=== PATIENT | female | born 1935 | race Caucasian/White ===

== ENCOUNTER 2022-03-14 18:40 | Emergency (ER) | payer OTHER, MEDICAID ==
[~2022-03-14] VITALS: Ht 152.4 cm; Wt 59.0 kg
[2022-03-14 18:50] VITALS: BP_SYST 146
--- NOTE | 2022-03-14 21:06 | NUR ---
Patient to ER bed 05 to gown for evaluation. Side rails up. Report given to HERNANDO SORTO
--- NOTE | 2022-03-14 21:10 | NUR ---
86 y/o f bib EMS from [facility] w c/o [facility] fall. pt does not report any pain currently.
--- NOTE | 2022-03-14 21:13 | NUR ---
PT TAKEN TO CT
--- NOTE | 2022-03-14 21:27 | NUR ---
DR. FARRIS AT BEDSIDE.
--- NOTE | 2022-03-14 21:30 | NUR ---
PT REFUSED TO ENTER CT
--- NOTE | 2022-03-14 21:35 | NUR ---
Pt given verbal education that refusal of treatment may lead to harm and/or , pt acknowledges. Pt stated, "no me toques, malditas."
--- NOTE | 2022-03-14 21:46 | NUR ---
SPOKE TO ADMIN AT [facility], THEY STATED THEY WILL CALL US BACK REGARDING TRANSPORT HOME FOR PT.
--- NOTE | 2022-03-14 21:51 | NUR ---
CALLED DAUGHTER MAURILIO FOR TRANSPORT, DAUGHTER COULD NOT PICK MOTHER UP.
--- NOTE | 2022-03-14 22:32 | NUR ---
Patient resting quietly. No acute distress noted. Vital signs within normal range.
--- NOTE | 2022-03-15 00:26 | NUR ---
Patient resting quietly. No acute distress noted. Vital signs within normal range. No complaints of pain at this time.
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
[2022-03-15 02:50] VITALS: BP_SYST 140
--- NOTE | 2022-03-15 02:50 | NUR ---
Patient dishcharged, taken by ems transport back to [facility]. VSS. Pt given written and verbal discharge instructions.
== END 2022-03-15 02:50 | disposition home or self-care (01) ==
LOC: SED 18:40
DX: Z04.3 Encounter for examination and observation following other accident (principal); I10 Essential (primary) hypertension; Z79.899 Other long term (current) drug therapy
CPT/HCPCS: 99283; 99285

== ENCOUNTER 2023-06-24 16:33 | Inpatient (IN) | payer OTHER, MEDICAID ==
[~2023-06-24] VITALS: Ht 172.7 cm; Wt 54.9 kg
[2023-06-24 16:35] VITALS: BP_SYST 125; PULSE 90; RESP 22; TEMP 96.5; O2SAT 95
[2023-06-24] MEDS ORDERED: HALOPERIDOL LACTATE 5 MG/ML VIAL ONE (17:40)
[2023-06-24] MEDS ORDERED: LORazepam 2 MG/ML VIAL IM ONE (17:45)
[2023-06-24] MEDS ORDERED: HALOPERIDOL LACTATE 5 MG/ML VIAL IM ONE (17:45)
[2023-06-24] MEDS ORDERED: OLANZapine IntraMuscular 10 MG VIAL (FOR I.M. INJECTION ONLY) IM ONE (17:45)
[2023-06-24] MEDS ORDERED: DIPHENHYDRAMINE INJ 50 MG/ML VIAL IM ONE (17:45)
[2023-06-24] MEDS ORDERED: HYDROcodone/ACETAMIN 5-325 MG TAB (NORCO/ VICODIN) PO ONE (20:15)
[2023-06-24 21:04] LABS: LYMPHOCYTES % (AUTO) 28.1 % (20.5-51.5); RED CELL DISTRIBUTION WIDTH 12.9 % (9.0-15.0)
[2023-06-24 21:10] LABS: BASOPHILS % (AUTO) 0.9 % (0.0-2.0); EOSINOPHILS % (AUTO) 0.5 % (0.0-4.0); HEMATOCRIT 36.2 % (36-48); HEMOGLOBIN 12.4 g/dL (12.0-16.0); LYMPHOCYTES # (AUTO) 2.5 K/uL (1.0-5.5); MEAN CORPUSCULAR HEMOGLOBIN 30 pg (27-31); MEAN CORPUSCULAR HGB CONC 34 % (32-36); MEAN CORPUSCULAR VOLUME 87 fL (79.0-98.0); MONOCYTES # (AUTO) 0.5 K/uL (0.0-1.0); NEUTROPHILS # (AUTO) 5.7 K/uL (1.8-7.7); NEUTROPHILS % (AUTO) 64.5 % (40.0-70.0); PLATELET COUNT (AUTO) 217 K/uL (130-430); RED BLOOD CELL COUNT(AUTO) 4.14 MIL/uL (4.2-6.2); WHITE BLOOD COUNT (AUTO) 8.9 K/uL (4.8-10.8)
[2023-06-24 21:16] LABS: ANION GAP 7 (5-15); CALCIUM 9.2 mg/dL (8.4-11.0); CARBON DIOXIDE 29 mmol/L (23-29); CHLORIDE 106 mmol/L (98-107); CREATININE 0.72 mg/dL (0.55-1.30); GLUCOSE 95 mg/dL (74-106); POTASSIUM 3.4 mmol/L (3.5-5.1); SODIUM SERUM 142 mmol/L (136-145); UREA NITROGEN, BLOOD 16 mg/dL (8-21)
[2023-06-24 21:17] LABS: PROTHROMBIN TIME 10.3 SECS (9.5-12.5)
[2023-06-24 21:22] LABS: ALANINE AMINOTRANSFERASE 18 U/L (12-78); ALBUMIN 3.7 g/dL (3.4-4.8); ASPARTATE AMINOTRANSFERASE 19 U/L (10-37); BILIRUBIN,DIRECT 0.1 mg/dL (0.0-0.3); SALICYLATE < 1 mg/dL (3-30); TOTAL BILIRUBIN 0.4 mg/dL (0.0-1.0); TOTAL PROTEIN, SERUM 7.5 g/dL (6.4-8.3)
[2023-06-24 21:23] LABS: ACETAMINOPHEN < 1 ug/mL (1-30); ALCOHOL, BLOOD < 3 mg/dL (<10)
[2023-06-24 21:25] LABS: BASOPHILS # (AUTO) 0.1 K/uL (0.0-0.2)
[2023-06-24 21:38] LABS: BILIRUBIN,URINE NEGATIVE (NEGATIVE); CLARITY/URINE CLEAR (CLEAR); COLOR,URINE YELLOW (YELLOW); GLUCOSE,URINE NEGATIVE (NEGATIVE); KETONES,URINE NEGATIVE (NEGATIVE); LEUKOCYTE ESTERASE ,URINE NEGATIVE (NEGATIVE); NITRITE, URINE NEGATIVE (NEGATIVE); PROTEIN URINE NEGATIVE (NEGATIVE); UROBILINOGEN,URINE 0.2 (0.2-1.0)
[2023-06-24 21:47] LABS: BLOOD, URINE TRACE (NEGATIVE)
[2023-06-24 21:48] LABS: BACTERIA,URINE None Seen /HPF (None Seen); MUCUS,URINE None Seen /LPF (None Seen); RBC,URINE 0-3 /HPF (0-3); WBC,URINE NONE SEEN /HPF (0-3)
[2023-06-24 21:49] LABS: BARBITURATE, URINE NEGATIVE (NEG <=200); BENZODIAZEPINE, URINE NEGATIVE (NEG <=150); CANNABINOID, URINE NEGATIVE (NEG <=50); COCAINE, URINE NEGATIVE (NEG <=150); METHAMPHETAMINES SCREEN,URINE NEGATIVE (NEG <=500); OPIATE, URINE NEGATIVE (NEG <=100); PHENCYCLIDINE SCREEN,URINE NEGATIVE (NEG <=25); UR TRICYCLIC ANTIDEPRESSANTS NEGATIVE (NEG <=300); URINE AMPHETAMINE NEGATIVE (NEG <=500); URINE METHADONE NEGATIVE (NEG <=200); URINE OXYCODONE SCREEN NEGATIVE (NEG <=100)
[2023-06-25] MEDS ORDERED: DIPHENHYDRAMINE INJ 50 MG/ML VIAL IVP ONE (03:00)
[2023-06-25] MEDS ORDERED: DIPHENHYDRAMINE INJ 50 MG/ML VIAL IM ONE ×2 (03:00→09:15)
[2023-06-25] MEDS ORDERED: HALOPERIDOL LACTATE 5 MG/ML VIAL IM ONE ×2 (03:30→07:00)
[2023-06-25] MEDS ORDERED: LORazepam 2 MG/ML VIAL IVP ONE ×2 (05:30→06:45)
[2023-06-25] MEDS ORDERED: OLANZapine 5 MG TABLET PO ONE (06:45)
[2023-06-25 09:51] LABS: BASOPHILS % (AUTO) 0.6 % (0.0-2.0); EOSINOPHILS % (AUTO) 0.7 % (0.0-4.0); HEMATOCRIT 35.1 % (36-48); LYMPHOCYTES # (AUTO) 1.3 K/uL (1.0-5.5); LYMPHOCYTES % (AUTO) 24.6 % (20.5-51.5); MEAN CORPUSCULAR HEMOGLOBIN 30 pg (27-31); MEAN CORPUSCULAR HGB CONC 34 % (32-36); MEAN CORPUSCULAR VOLUME 88 fL (79.0-98.0); MONOCYTES # (AUTO) 0.3 K/uL (0.0-1.0); MONOCYTES % (AUTO) 5.4 % (1.7-9.3); NEUTROPHILS # (AUTO) 3.7 K/uL (1.8-7.7); NEUTROPHILS % (AUTO) 68.7 % (40.0-70.0); PLATELET COUNT (AUTO) 276 K/uL (130-430); RED BLOOD CELL COUNT(AUTO) 4.01 MIL/uL (4.2-6.2); WHITE BLOOD COUNT (AUTO) 5.3 K/uL (4.8-10.8)
[2023-06-25 10:10] LABS: ANION GAP 10 (5-15); CALCIUM 8.8 mg/dL (8.4-11.0); CARBON DIOXIDE 25 mmol/L (23-29); CHLORIDE 105 mmol/L (98-107); GLUCOSE 138 mg/dL (74-106); POTASSIUM 3.4 mmol/L (3.5-5.1); SODIUM SERUM 140 mmol/L (136-145); UREA NITROGEN, BLOOD 14 mg/dL (8-21)
[2023-06-25 10:17] LABS: ALANINE AMINOTRANSFERASE 18 U/L (12-78); ALBUMIN 3.6 g/dL (3.4-4.8); ASPARTATE AMINOTRANSFERASE 32 U/L (10-37); TOTAL BILIRUBIN 0.5 mg/dL (0.0-1.0); TOTAL PROTEIN, SERUM 7.3 g/dL (6.4-8.3)
[2023-06-25] MEDS ORDERED: ASPI-1155 PO (11:53)
[2023-06-25] MEDS ORDERED: LEVO25TA7 PO (11:53)
[2023-06-25] MEDS ORDERED: GABA-534 PO (11:53)
[2023-06-25] MEDS ORDERED: LORA-258 PO (11:53)
[2023-06-25] MEDS ORDERED: ESCI-6 PO (11:53)
[2023-06-25] MEDS ORDERED: ATOR40TA68 PO (11:53)
[2023-06-25] MEDS: LORazepam 2 MG/ML VIAL IVP PRN ×2 (12:10→23:23)
[2023-06-25 16:06] VITALS: BP_SYST 117; PULSE 87; RESP 18; TEMP 98.5; O2SAT 98
[2023-06-25] MEDS ORDERED: BREX0.5T PO (18:20)
[2023-06-25] MEDS ORDERED: CALC-17 PO (18:20)
[2023-06-25] MEDS ORDERED: PANT40TA45 PO (18:20)
[2023-06-25 20:10] VITALS: BP_SYST 149; PULSE 72; RESP 18; TEMP 99.5; O2SAT 100
[2023-06-25] MEDS: LORazepam 1 MG TABLET PO SCH (21:00)
[2023-06-25] MEDS: ATORVASTATIN 20 MG TABLET PO SCH (21:00)
[2023-06-26 00:34] VITALS: BP_SYST 158; PULSE 71; RESP 20; TEMP 98.8; O2SAT 96
[2023-06-26] MEDS: LEVOTHYROXINE SODIUM 0.025 MG TABLET PO SCH (07:00)
[2023-06-26 08:00] VITALS: O2SAT 96
[2023-06-26] MEDS: LORazepam 2 MG/ML VIAL IVP PRN ×3 (08:22→17:49)
[2023-06-26 08:45] VITALS: BP_SYST 130; PULSE 111; RESP 16; TEMP 98.4; O2SAT 96
[2023-06-26] MEDS: ASPIRIN 81 MG TAB.CHEW PO SCH (09:00)
[2023-06-26] MEDS: LORazepam 1 MG TABLET PO SCH ×2 (09:00→20:27)
[2023-06-26] MEDS ORDERED: ESCITALOPRAM OXALATE 10 MG TABLET PO SCH (09:00)
[2023-06-26] MEDS: CITALOPRAM HYDROBROMIDE 20 MG TABLET PO SCH (09:00)
[2023-06-26 11:38] VITALS: BP_SYST 139; PULSE 117; RESP 21; TEMP 98.1; O2SAT 96
[2023-06-26] MEDS: D5/0.45 NS 1,000 ML IV SCH ×2 (13:21→23:31)
[2023-06-26 17:20] VITALS: BP_SYST 140; PULSE 120; RESP 21; TEMP 98.1; O2SAT 97
[2023-06-26] MEDS: ATORVASTATIN 20 MG TABLET PO SCH (20:27)
[2023-06-26 20:30] VITALS: BP_SYST 163; PULSE 118; RESP 20; TEMP 99.3; O2SAT 95
[2023-06-27] MEDS: LORazepam 2 MG/ML VIAL IVP PRN (00:03)
[2023-06-27 00:55] VITALS: BP_SYST 143; PULSE 115
[2023-06-27] MEDS: LEVOTHYROXINE SODIUM 0.025 MG TABLET PO SCH (07:00)
[2023-06-27 08:20] VITALS: BP_SYST 154; PULSE 91; RESP 20; TEMP 98.4; O2SAT 98
[2023-06-27] MEDS ORDERED: POTASSIUM CHLORIDE 20 MEQ TABLET.ER PO ONE (08:30)
[2023-06-27] MEDS: D5/0.45 NS 1,000 ML IV SCH ×2 (09:15→16:30)
[2023-06-27 09:55] VITALS: O2SAT 98
[2023-06-27] MEDS: LORazepam 1 MG TABLET PO SCH ×2 (10:12→22:15)
[2023-06-27] MEDS: CITALOPRAM HYDROBROMIDE 20 MG TABLET PO SCH (10:12)
[2023-06-27] MEDS: ASPIRIN 81 MG TAB.CHEW PO SCH (10:12)
[2023-06-27 11:45] VITALS: BP_SYST 155; PULSE 98; RESP 22; TEMP 98.5; O2SAT 100
[2023-06-27 17:25] VITALS: BP_SYST 149; PULSE 69; RESP 17; TEMP 98; O2SAT 100
[2023-06-27 21:30] VITALS: O2SAT 98
[2023-06-27] MEDS: ATORVASTATIN 20 MG TABLET PO SCH (22:14)
[2023-06-28] MEDS: LORazepam 2 MG/ML VIAL IVP PRN ×3 (00:48→16:57)
[2023-06-28 01:51] VITALS: BP_SYST 135; PULSE 63; RESP 17; TEMP 97.8; O2SAT 99
[2023-06-28 06:29] LABS: BASOPHILS % (AUTO) 0.3 % (0.0-2.0); EOSINOPHILS # (AUTO) 0.1 K/uL (0.0-0.4); EOSINOPHILS % (AUTO) 0.9 % (0.0-4.0); HEMATOCRIT 39.5 % (36-48); HEMOGLOBIN 13.8 g/dL (12.0-16.0); LYMPHOCYTES # (AUTO) 1.9 K/uL (1.0-5.5); LYMPHOCYTES % (AUTO) 29.2 % (20.5-51.5); MEAN CORPUSCULAR HEMOGLOBIN 30 pg (27-31); MEAN CORPUSCULAR HGB CONC 35 % (32-36); MEAN CORPUSCULAR VOLUME 87 fL (79.0-98.0); MONOCYTES # (AUTO) 0.5 K/uL (0.0-1.0); MONOCYTES % (AUTO) 7.9 % (1.7-9.3); NEUTROPHILS % (AUTO) 61.7 % (40.0-70.0); PLATELET COUNT (AUTO) 297 K/uL (130-430); RED BLOOD CELL COUNT(AUTO) 4.53 MIL/uL (4.2-6.2); RED CELL DISTRIBUTION WIDTH 13.1 % (9.0-15.0); WHITE BLOOD COUNT (AUTO) 6.5 K/uL (4.8-10.8)
[2023-06-28 06:56] LABS: ANION GAP 8 (5-15); CALCIUM 9.3 mg/dL (8.4-11.0); CARBON DIOXIDE 28 mmol/L (23-29); CHLORIDE 103 mmol/L (98-107); CREATININE 0.71 mg/dL (0.55-1.30); GLUCOSE 109 mg/dL (74-106); POTASSIUM 3.5 mmol/L (3.5-5.1); SODIUM SERUM 139 mmol/L (136-145); UREA NITROGEN, BLOOD 9 mg/dL (8-21)
[2023-06-28] MEDS: D5/0.45 NS 1,000 ML IV SCH ×2 (07:30→16:57)
[2023-06-28 08:00] VITALS: BP_SYST 153; PULSE 76; RESP 17; TEMP 97.1; O2SAT 100
[2023-06-28] MEDS: ASPIRIN 81 MG TAB.CHEW PO SCH ×2 (09:00→09:09)
[2023-06-28] MEDS: LORazepam 1 MG TABLET PO SCH ×3 (09:00→23:34)
[2023-06-28] MEDS: CITALOPRAM HYDROBROMIDE 20 MG TABLET PO SCH ×2 (09:00→09:09)
[2023-06-28 12:16] VITALS: BP_SYST 145; PULSE 72; RESP 16; TEMP 97.4; O2SAT 97
[2023-06-28 16:23] VITALS: BP_SYST 149; PULSE 77; RESP 16; TEMP 97.2; O2SAT 99
[2023-06-28] MEDS: ATORVASTATIN 20 MG TABLET PO SCH (23:34)
[2023-06-29] MEDS: D5/0.45 NS 1,000 ML IV SCH ×2 (01:15→13:16)
[2023-06-29 01:34] VITALS: BP_SYST 140; PULSE 68; RESP 17; TEMP 98.4; O2SAT 99
[2023-06-29] MEDS: LEVOTHYROXINE SODIUM 0.025 MG TABLET PO SCH (07:00)
[2023-06-29 08:36] VITALS: BP_SYST 151; PULSE 96; RESP 20; TEMP 97.1; O2SAT 97
[2023-06-29] MEDS: LORazepam 2 MG/ML VIAL IVP PRN ×2 (08:53→16:24)
[2023-06-29] MEDS: LORazepam 1 MG TABLET PO SCH (09:00)
[2023-06-29] MEDS: CITALOPRAM HYDROBROMIDE 20 MG TABLET PO SCH (09:00)
[2023-06-29] MEDS: ASPIRIN 81 MG TAB.CHEW PO SCH (09:00)
[2023-06-29 10:36] VITALS: O2SAT 97
[2023-06-29 11:13] VITALS: BP_SYST 134; PULSE 61; RESP 16; TEMP 96.6; O2SAT 93
[2023-06-29 15:30] VITALS: BP_SYST 154; PULSE 72; RESP 16; TEMP 96.8; O2SAT 96
[2023-06-30] VITALS (7 sets, daily range): BP systolic 120–139; PULSE 64–86; RESP 16–18; TEMP 97.4–98.6; O2SAT 93–98
[2023-06-30] MEDS: LORazepam 1 MG TABLET PO SCH ×4 (01:23→21:00)
[2023-06-30] MEDS: ATORVASTATIN 20 MG TABLET PO SCH ×2 (01:24→20:22)
[2023-06-30] MEDS: D5/0.45 NS 1,000 ML IV SCH ×3 (01:26→17:19)
[2023-06-30 06:15] LABS: BASOPHILS % (AUTO) 0.6 % (0.0-2.0); EOSINOPHILS # (AUTO) 0.2 K/uL (0.0-0.4); EOSINOPHILS % (AUTO) 4.3 % (0.0-4.0); HEMATOCRIT 37.2 % (36-48); HEMOGLOBIN 12.8 g/dL (12.0-16.0); LYMPHOCYTES # (AUTO) 1.8 K/uL (1.0-5.5); LYMPHOCYTES % (AUTO) 37.7 % (20.5-51.5); MEAN CORPUSCULAR HEMOGLOBIN 30 pg (27-31); MEAN CORPUSCULAR HGB CONC 34 % (32-36); MEAN CORPUSCULAR VOLUME 86 fL (79.0-98.0); MONOCYTES # (AUTO) 0.4 K/uL (0.0-1.0); MONOCYTES % (AUTO) 8.5 % (1.7-9.3); NEUTROPHILS # (AUTO) 2.3 K/uL (1.8-7.7); NEUTROPHILS % (AUTO) 48.9 % (40.0-70.0); PLATELET COUNT (AUTO) 297 K/uL (130-430); RED BLOOD CELL COUNT(AUTO) 4.31 MIL/uL (4.2-6.2); RED CELL DISTRIBUTION WIDTH 12.6 % (9.0-15.0); WHITE BLOOD COUNT (AUTO) 4.7 K/uL (4.8-10.8)
[2023-06-30 06:26] LABS: ANION GAP 9 (5-15); CARBON DIOXIDE 25 mmol/L (23-29); CHLORIDE 105 mmol/L (98-107); CREATININE 0.65 mg/dL (0.55-1.30); GLUCOSE 121 mg/dL (74-106); POTASSIUM 3.2 mmol/L (3.5-5.1); SODIUM SERUM 139 mmol/L (136-145); UREA NITROGEN, BLOOD 9 mg/dL (8-21)
[2023-06-30] MEDS: LEVOTHYROXINE SODIUM 0.025 MG TABLET PO SCH (07:00)
[2023-06-30] MEDS: ASPIRIN 81 MG TAB.CHEW PO SCH (09:07)
[2023-06-30] MEDS: CITALOPRAM HYDROBROMIDE 20 MG TABLET PO SCH (09:08)
[2023-06-30] MEDS: LORazepam 2 MG/ML VIAL IVP PRN (20:35)
[2023-06-30] MEDS ORDERED: ALPRAZolam 0.25 MG TABLET PO ONE (23:15)
[2023-07-01] VITALS: BP_SYST 131; PULSE 85; RESP 18; TEMP 97.4; O2SAT 94
[2023-07-01] MEDS: D5/0.45 NS 1,000 ML IV SCH ×2 (02:15→13:15)
[2023-07-01 06:46] LABS: BASOPHILS % (AUTO) 0.8 % (0.0-2.0); EOSINOPHILS # (AUTO) 0.1 K/uL (0.0-0.4); EOSINOPHILS % (AUTO) 2.3 % (0.0-4.0); HEMATOCRIT 34.8 % (36-48); HEMOGLOBIN 12.2 g/dL (12.0-16.0); LYMPHOCYTES # (AUTO) 1.6 K/uL (1.0-5.5); LYMPHOCYTES % (AUTO) 29.1 % (20.5-51.5); MEAN CORPUSCULAR HEMOGLOBIN 30 pg (27-31); MEAN CORPUSCULAR HGB CONC 35 % (32-36); MEAN CORPUSCULAR VOLUME 86 fL (79.0-98.0); MONOCYTES # (AUTO) 0.4 K/uL (0.0-1.0); MONOCYTES % (AUTO) 6.7 % (1.7-9.3); NEUTROPHILS # (AUTO) 3.3 K/uL (1.8-7.7); NEUTROPHILS % (AUTO) 61.1 % (40.0-70.0); PLATELET COUNT (AUTO) 283 K/uL (130-430); RED BLOOD CELL COUNT(AUTO) 4.07 MIL/uL (4.2-6.2); RED CELL DISTRIBUTION WIDTH 12.4 % (9.0-15.0); WHITE BLOOD COUNT (AUTO) 5.5 K/uL (4.8-10.8)
[2023-07-01 06:51] LABS: ANION GAP 8 (5-15); CALCIUM 8.6 mg/dL (8.4-11.0); CARBON DIOXIDE 27 mmol/L (23-29); CHLORIDE 105 mmol/L (98-107); CREATININE 0.55 mg/dL (0.55-1.30); GLUCOSE 118 mg/dL (74-106); SODIUM SERUM 140 mmol/L (136-145); UREA NITROGEN, BLOOD 7 mg/dL (8-21)
[2023-07-01] MEDS: LEVOTHYROXINE SODIUM 0.025 MG TABLET PO SCH (07:00)
[2023-07-01 07:12] LABS: POTASSIUM 2.7 mmol/L (3.5-5.1)
[2023-07-01 08:00] VITALS: O2SAT 97
[2023-07-01] MEDS: LORazepam 1 MG TABLET PO SCH (09:00)
[2023-07-01] MEDS: ASPIRIN 81 MG TAB.CHEW PO SCH (09:00)
[2023-07-01] MEDS: CITALOPRAM HYDROBROMIDE 20 MG TABLET PO SCH (09:00)
[2023-07-01] MEDS: LORazepam 2 MG/ML VIAL IVP PRN (10:04)
[2023-07-01 11:15] VITALS: BP_SYST 121; PULSE 79; RESP 16; TEMP 97; O2SAT 100
[2023-07-01] MEDS ORDERED: POTASSIUM CHLORIDE 60 MEQ, LIDOCAINE JECT 2% PF 100 MG 75 MG in NS 500 ML IV ONE (13:00)
[2023-07-01 15:05] VITALS: BP_SYST 118; PULSE 71; RESP 16; TEMP 97.7; O2SAT 95
== END 2023-07-01 17:55 | DRG 641 ==
LOC: SED 16:33 → STU 06-25 09:19
PROVIDERS: ADMIT Internal Medicine; ATTEND Internal Medicine
PROC: 4A00X4Z Measurement of Central Nervous Electrical Activity, External Approach (ICD-10-PCS; principal; 2023-06-28)
DX: E87.6 Hypokalemia (principal); E44.1 Mild protein-calorie malnutrition; Z68.1 Body mass index [BMI] 19.9 or less, adult; F03.90 Unspecified dementia, unspecified severity, without behavioral disturbance, psychotic disturbance, mood disturbance, and anxiety; I10 Essential (primary) hypertension; E78.5 Hyperlipidemia, unspecified; E03.9 Hypothyroidism, unspecified; F32.A Depression, unspecified; F41.9 Anxiety disorder, unspecified; Z88.1 Allergy status to other antibiotic agents; Z88.8 Allergy status to other drugs, medicaments and biological substances
CPT/HCPCS: 36415; 70450-TC; 71045; 72125-TC; 76376; 80048; 80053; 80076; 80307; 81000; 81001; 81015; 82962; 83880; 84484; 85025; 85610-TC; 85730-TC; 93005; 95816; 96372; 97110-GP; 97112-GP; 97530-GP; 99291; G0378; G0480; G0481; G0482; J1200; J1630; J2060; J3480; J3490; J7040

== ENCOUNTER 2023-07-17 12:42 | Inpatient (IN) | payer OTHER, MEDICAID ==
[~2023-07-17] VITALS: Ht 162.6 cm; Wt 54.4 kg
[~2023-07-17 12:42] MED LIST: ASPI-1155 PO; ATOR40TA68 PO; BREX0.5T PO; CALC-17 PO; ESCI-6 PO; GABA-534 PO; LEVO25TA7 PO; LORA-258 PO; PANT40TA45 PO
[2023-07-17] MEDS ORDERED: LORazepam 2 MG/ML VIAL IM ONE (12:45)
[2023-07-17] MEDS ORDERED: HALOPERIDOL LACTATE 5 MG/ML VIAL IM ONE (12:45)
[2023-07-17] MEDS ORDERED: DIPHENHYDRAMINE INJ 50 MG/ML VIAL IM ONE (12:45)
[2023-07-17 12:50] VITALS: BP_SYST 138; PULSE 61; RESP 18; TEMP 97; O2SAT 96
[2023-07-17 13:24] LABS: BASOPHILS % (AUTO) 0.6 % (0.0-2.0); EOSINOPHILS # (AUTO) 0.2 K/uL (0.0-0.4); HEMATOCRIT 36.4 % (36-48); HEMOGLOBIN 12.8 g/dL (12.0-16.0); LYMPHOCYTES # (AUTO) 2.2 K/uL (1.0-5.5); LYMPHOCYTES % (AUTO) 28.5 % (20.5-51.5); MEAN CORPUSCULAR HEMOGLOBIN 30 pg (27-31); MEAN CORPUSCULAR HGB CONC 35 % (32-36); MEAN CORPUSCULAR VOLUME 86 fL (79.0-98.0); MONOCYTES # (AUTO) 0.4 K/uL (0.0-1.0); NEUTROPHILS # (AUTO) 4.9 K/uL (1.8-7.7); NEUTROPHILS % (AUTO) 63.9 % (40.0-70.0); PLATELET COUNT (AUTO) 397 K/uL (130-430); RED BLOOD CELL COUNT(AUTO) 4.24 MIL/uL (4.2-6.2); WHITE BLOOD COUNT (AUTO) 7.6 K/uL (4.8-10.8)
[2023-07-17 13:35] LABS: ANION GAP 12 (5-15); CALCIUM 9.3 mg/dL (8.4-11.0); CARBON DIOXIDE 24 mmol/L (23-29); CHLORIDE 107 mmol/L (98-107); CREATININE 0.95 mg/dL (0.55-1.30); GLUCOSE 131 mg/dL (74-106); POTASSIUM 3.8 mmol/L (3.5-5.1); SODIUM SERUM 143 mmol/L (136-145); UREA NITROGEN, BLOOD 14 mg/dL (8-21)
[2023-07-17 13:38] LABS: ALANINE AMINOTRANSFERASE 22 U/L (12-78); ALBUMIN 3.5 g/dL (3.4-4.8); ASPARTATE AMINOTRANSFERASE 20 U/L (10-37); BILIRUBIN,DIRECT 0.1 mg/dL (0.0-0.3); CREATINE KINASE, TOTAL 154 U/L (26-192); SALICYLATE 1 mg/dL (3-30); TOTAL BILIRUBIN 0.4 mg/dL (0.0-1.0); TOTAL PROTEIN, SERUM 7.4 g/dL (6.4-8.3)
[2023-07-17 13:39] LABS: ACETAMINOPHEN < 1 ug/mL (1-30); ALCOHOL, BLOOD < 3 mg/dL (<10)
[2023-07-17] MEDS ORDERED: PIPERACILLIN/TAZO 3.375 GM in NS 50 ML IV ONE (16:30)
[2023-07-17 17:09] LABS: BILIRUBIN,URINE NEGATIVE (NEGATIVE); BLOOD, URINE 1+ (NEGATIVE); CLARITY/URINE SL CLOUDY (CLEAR); COLOR,URINE YELLOW (YELLOW); GLUCOSE,URINE NEGATIVE (NEGATIVE); KETONES,URINE TRACE (NEGATIVE); LEUKOCYTE ESTERASE ,URINE 3+ (NEGATIVE); NITRITE, URINE POSITIVE (NEGATIVE); PH,URINE 6.5 (5.0-8.0); PROTEIN URINE NEGATIVE (NEGATIVE); UROBILINOGEN,URINE 0.2 (0.2-1.0)
[2023-07-17] MEDS ORDERED: PIPERACILLIN/TAZOBACTAM 3.375 GM/VIAL (ZOSYN) IV ONE (17:12)
[2023-07-17 17:20] LABS: BACTERIA,URINE MANY /HPF (None Seen); MUCUS,URINE None Seen /LPF (None Seen); RBC,URINE 0-3 /HPF (0-3); WBC,URINE 50-80 /HPF (0-3)
[2023-07-17] MEDS ORDERED: ONDANSETRON HCL 4 MG/2 ML VIAL IVP PRN (19:45)
[2023-07-17] MEDS ORDERED: MUPIROCIN 2% TOPICAL OINTMENT 22 GM NS PRN (19:45)
[2023-07-17] MEDS ORDERED: ZOLPIDEM TARTRATE 5 MG TABLET PO PRN (19:45)
[2023-07-17] MEDS ORDERED: DOCUSATE SODIUM 100 MG CAPSULE PO PRN (19:45)
[2023-07-17] MEDS ORDERED: MAGNESIUM SULFATE 50 ML IV PRN (19:45)
[2023-07-17] MEDS ORDERED: POTASSIUM CHLORIDE 20 MEQ TABLET.ER PO PRN (19:45)
[2023-07-17] MEDS ORDERED: NACL 0.9% 1,000 ML IV SCH (20:00)
[2023-07-17] MEDS ORDERED: ACETAMINOPHEN 500 MG TABLET PO PRN ×2 (20:00)
[2023-07-17] MEDS ORDERED: NON-FORMULARY MEDICATION (Brexpiprazole (Rexulti) 1 TAB) PO SCH (21:00)
[2023-07-17] MEDS: GABAPENTIN 300 MG CAPSULE PO SCH (21:55)
[2023-07-17] MEDS: ATORVASTATIN 20 MG TABLET PO SCH (21:55)
[2023-07-17] MEDS: HEPARIN SODIUM,PORCINE 5,000 UNITS/ML VIAL SUBCUT SCH (22:49)
[2023-07-18 04:39] LABS: BASOPHILS % (AUTO) 0.7 % (0.0-2.0); EOSINOPHILS # (AUTO) 0.2 K/uL (0.0-0.4); EOSINOPHILS % (AUTO) 2.4 % (0.0-4.0); HEMATOCRIT 38.4 % (36-48); HEMOGLOBIN 13.3 g/dL (12.0-16.0); LYMPHOCYTES # (AUTO) 2.2 K/uL (1.0-5.5); LYMPHOCYTES % (AUTO) 30.4 % (20.5-51.5); MEAN CORPUSCULAR HEMOGLOBIN 30 pg (27-31); MEAN CORPUSCULAR HGB CONC 35 % (32-36); MEAN CORPUSCULAR VOLUME 87 fL (79.0-98.0); MONOCYTES # (AUTO) 0.4 K/uL (0.0-1.0); MONOCYTES % (AUTO) 5.7 % (1.7-9.3); NEUTROPHILS # (AUTO) 4.5 K/uL (1.8-7.7); NEUTROPHILS % (AUTO) 60.8 % (40.0-70.0); PLATELET COUNT (AUTO) 323 K/uL (130-430); RED BLOOD CELL COUNT(AUTO) 4.39 MIL/uL (4.2-6.2); WHITE BLOOD COUNT (AUTO) 7.4 K/uL (4.8-10.8)
[2023-07-18 05:00] LABS: ANION GAP 8 (5-15); CARBON DIOXIDE 30 mmol/L (23-29); CHLORIDE 110 mmol/L (98-107); CREATININE 0.81 mg/dL (0.55-1.30); GLUCOSE 84 mg/dL (74-106); POTASSIUM 3.8 mmol/L (3.5-5.1); SODIUM SERUM 148 mmol/L (136-145); UREA NITROGEN, BLOOD 12 mg/dL (8-21)
[2023-07-18] MEDS ORDERED: cefTRIAXone 1 GM VIAL ONE (07:21)
[2023-07-18] MEDS: cefTRIAXone 1 GM in D5W 50 ML IV SCH (07:23)
[2023-07-18] MEDS: REXULTI 0.5 MG PO SCH (09:00)
[2023-07-18] MEDS ORDERED: ESCITALOPRAM OXALATE 10 MG TABLET PO SCH (09:00)
[2023-07-18] MEDS: ASPIRIN 81 MG TAB.CHEW PO SCH (09:05)
[2023-07-18] MEDS: CITALOPRAM HYDROBROMIDE 20 MG TABLET PO SCH (09:05)
[2023-07-18] MEDS: GABAPENTIN 300 MG CAPSULE PO SCH ×2 (09:06→21:42)
[2023-07-18] MEDS: LEVOTHYROXINE SODIUM 0.025 MG TABLET PO SCH (09:06)
[2023-07-18] MEDS: HEPARIN SODIUM,PORCINE 5,000 UNITS/ML VIAL SUBCUT SCH ×2 (09:30→21:46)
[2023-07-18] MEDS: LORazepam 2 MG/ML VIAL IVP PRN ×2 (15:06→21:42)
[2023-07-18 15:15] VITALS: BP_SYST 111; PULSE 104; RESP 16; TEMP 97.1; O2SAT 93
[2023-07-18 15:57] VITALS: BP_SYST 111; PULSE 104; RESP 16; TEMP 97.1; O2SAT 93
[2023-07-18 20:00] VITALS: BP_SYST 125; PULSE 98; RESP 18; TEMP 98; O2SAT 98
[2023-07-18] MEDS: ATORVASTATIN 20 MG TABLET PO SCH (21:42)
[2023-07-19 00:33] VITALS: BP_SYST 115; PULSE 115; RESP 17; TEMP 97.6; O2SAT 100
[2023-07-19 05:49] LABS: BASOPHILS # (AUTO) 0.1 K/uL (0.0-0.2); BASOPHILS % (AUTO) 0.9 % (0.0-2.0); EOSINOPHILS # (AUTO) 0.1 K/uL (0.0-0.4); EOSINOPHILS % (AUTO) 1.8 % (0.0-4.0); HEMATOCRIT 33.2 % (36-48); HEMOGLOBIN 11.5 g/dL (12.0-16.0); LYMPHOCYTES # (AUTO) 1.8 K/uL (1.0-5.5); MEAN CORPUSCULAR HEMOGLOBIN 30 pg (27-31); MEAN CORPUSCULAR HGB CONC 35 % (32-36); MEAN CORPUSCULAR VOLUME 86 fL (79.0-98.0); MONOCYTES # (AUTO) 0.3 K/uL (0.0-1.0); MONOCYTES % (AUTO) 5.4 % (1.7-9.3); NEUTROPHILS % (AUTO) 63.9 % (40.0-70.0); PLATELET COUNT (AUTO) 290 K/uL (130-430); RED BLOOD CELL COUNT(AUTO) 3.87 MIL/uL (4.2-6.2); RED CELL DISTRIBUTION WIDTH 12.5 % (9.0-15.0); WHITE BLOOD COUNT (AUTO) 6.3 K/uL (4.8-10.8)
[2023-07-19 06:30] LABS: ANION GAP 10 (5-15); CALCIUM 8.5 mg/dL (8.4-11.0); CARBON DIOXIDE 26 mmol/L (23-29); CHLORIDE 108 mmol/L (98-107); CREATININE 0.58 mg/dL (0.55-1.30); GLUCOSE 86 mg/dL (74-106); POTASSIUM 3.4 mmol/L (3.5-5.1); SODIUM SERUM 144 mmol/L (136-145); THYROID STIMULATING HORMONE 0.89 uIu/mL (0.34-4.82); UREA NITROGEN, BLOOD 8 mg/dL (8-21)
[2023-07-19] MEDS: LEVOTHYROXINE SODIUM 0.025 MG TABLET PO SCH (06:40)
[2023-07-19] MEDS ORDERED: POTASSIUM CHLORIDE 20 MEQ TABLET.ER PO ONE (07:30)
[2023-07-19 08:00] VITALS: BP_SYST 131; PULSE 78; RESP 16; TEMP 98.1; O2SAT 97
[2023-07-19] MEDS: REXULTI 0.5 MG PO SCH ×2 (09:00→21:00)
[2023-07-19 10:00] VITALS: O2SAT 97
[2023-07-19] MEDS: LORazepam 2 MG/ML VIAL IVP PRN (10:19)
[2023-07-19] MEDS: ASPIRIN 81 MG TAB.CHEW PO SCH (10:32)
[2023-07-19] MEDS: GABAPENTIN 300 MG CAPSULE PO SCH ×2 (10:32→21:19)
[2023-07-19] MEDS: CITALOPRAM HYDROBROMIDE 20 MG TABLET PO SCH (10:33)
[2023-07-19] MEDS: HEPARIN SODIUM,PORCINE 5,000 UNITS/ML VIAL SUBCUT SCH ×2 (10:34→21:19)
[2023-07-19] MEDS: cefTRIAXone 1 GM in D5W 50 ML IV SCH (10:35)
[2023-07-19 11:08] VITALS: BP_SYST 154; PULSE 77; RESP 16; TEMP 97.2; O2SAT 93
[2023-07-19 15:11] VITALS: BP_SYST 110; PULSE 93; RESP 14; TEMP 97.6; O2SAT 99
[2023-07-19 20:00] VITALS: BP_SYST 129; PULSE 101; RESP 18; TEMP 97.5; O2SAT 97
[2023-07-19] MEDS: CIPROFLOXACIN LACT 400 MG/D5W 200 ML IV SCH (21:17)
[2023-07-19] MEDS: QUEtiapine FUMARATE 25 MG TABLET PO SCH (21:18)
[2023-07-19] MEDS: ATORVASTATIN 20 MG TABLET PO SCH (21:18)
[2023-07-20 00:37] VITALS: BP_SYST 181; PULSE 71; RESP 16; TEMP 97.8; O2SAT 100
[2023-07-20 01:28] VITALS: BP_SYST 150
[2023-07-20] MEDS: LEVOTHYROXINE SODIUM 0.025 MG TABLET PO SCH (06:35)
[2023-07-20 07:06] LABS: ANION GAP 9 (5-15); CALCIUM 8.2 mg/dL (8.4-11.0); CARBON DIOXIDE 26 mmol/L (23-29); CHLORIDE 108 mmol/L (98-107); CREATININE 0.58 mg/dL (0.55-1.30); GLUCOSE 80 mg/dL (74-106); POTASSIUM 3.7 mmol/L (3.5-5.1); SODIUM SERUM 143 mmol/L (136-145); UREA NITROGEN, BLOOD 10 mg/dL (8-21)
[2023-07-20 07:23] LABS: BASOPHILS % (AUTO) 0.7 % (0.0-2.0); EOSINOPHILS # (AUTO) 0.2 K/uL (0.0-0.4); EOSINOPHILS % (AUTO) 2.9 % (0.0-4.0); HEMATOCRIT 34.9 % (36-48); LYMPHOCYTES # (AUTO) 1.3 K/uL (1.0-5.5); LYMPHOCYTES % (AUTO) 25.8 % (20.5-51.5); MEAN CORPUSCULAR HEMOGLOBIN 30 pg (27-31); MEAN CORPUSCULAR HGB CONC 34 % (32-36); MEAN CORPUSCULAR VOLUME 87 fL (79.0-98.0); MONOCYTES # (AUTO) 0.3 K/uL (0.0-1.0); MONOCYTES % (AUTO) 6.6 % (1.7-9.3); NEUTROPHILS # (AUTO) 3.3 K/uL (1.8-7.7); PLATELET COUNT (AUTO) 225 K/uL (130-430); RED BLOOD CELL COUNT(AUTO) 4.02 MIL/uL (4.2-6.2); RED CELL DISTRIBUTION WIDTH 12.7 % (9.0-15.0); WHITE BLOOD COUNT (AUTO) 5.2 K/uL (4.8-10.8)
[2023-07-20 08:00] VITALS: BP_SYST 151; PULSE 82; RESP 16; TEMP 96.2; O2SAT 98
[2023-07-20] MEDS: REXULTI 0.5 MG PO SCH ×2 (09:00→21:00)
[2023-07-20] MEDS: GABAPENTIN 300 MG CAPSULE PO SCH ×2 (09:11→20:32)
[2023-07-20] MEDS: QUEtiapine FUMARATE 25 MG TABLET PO SCH ×2 (09:11→20:31)
[2023-07-20] MEDS: ASPIRIN 81 MG TAB.CHEW PO SCH (09:11)
[2023-07-20] MEDS: CITALOPRAM HYDROBROMIDE 20 MG TABLET PO SCH (09:11)
[2023-07-20] MEDS: CIPROFLOXACIN LACT 400 MG/D5W 200 ML IV SCH ×2 (09:11→20:45)
[2023-07-20] MEDS: HEPARIN SODIUM,PORCINE 5,000 UNITS/ML VIAL SUBCUT SCH ×2 (09:13→20:33)
[2023-07-20 13:24] VITALS: BP_SYST 145; PULSE 80; RESP 17; TEMP 96.8; O2SAT 96
[2023-07-20 16:30] VITALS: BP_SYST 148; PULSE 81; RESP 17; TEMP 96.4; O2SAT 97
[2023-07-20 20:00] VITALS: BP_SYST 120; PULSE 94; RESP 18; TEMP 97.8; O2SAT 99
[2023-07-20] MEDS: ATORVASTATIN 20 MG TABLET PO SCH (20:31)
[2023-07-20] MEDS: ACETAMINOPHEN 500 MG TABLET PO PRN (20:32)
[2023-07-21] VITALS: BP_SYST 117; PULSE 59; RESP 18; TEMP 97.9; O2SAT 99
[2023-07-21] MEDS: LORazepam 2 MG/ML VIAL IVP PRN (04:59)
[2023-07-21] MEDS: LEVOTHYROXINE SODIUM 0.025 MG TABLET PO SCH (06:10)
[2023-07-21] MEDS: ACETAMINOPHEN 500 MG TABLET PO PRN (06:11)
[2023-07-21 06:43] LABS: BASOPHILS # (AUTO) 0.1 K/uL (0.0-0.2); BASOPHILS % (AUTO) 0.9 % (0.0-2.0); EOSINOPHILS # (AUTO) 0.2 K/uL (0.0-0.4); EOSINOPHILS % (AUTO) 3.9 % (0.0-4.0); HEMATOCRIT 37.5 % (36-48); HEMOGLOBIN 12.8 g/dL (12.0-16.0); LYMPHOCYTES # (AUTO) 2.6 K/uL (1.0-5.5); LYMPHOCYTES % (AUTO) 42.2 % (20.5-51.5); MEAN CORPUSCULAR HEMOGLOBIN 30 pg (27-31); MEAN CORPUSCULAR HGB CONC 34 % (32-36); MEAN CORPUSCULAR VOLUME 87 fL (79.0-98.0); MONOCYTES # (AUTO) 0.3 K/uL (0.0-1.0); MONOCYTES % (AUTO) 5.4 % (1.7-9.3); NEUTROPHILS # (AUTO) 2.9 K/uL (1.8-7.7); NEUTROPHILS % (AUTO) 47.6 % (40.0-70.0); PLATELET COUNT (AUTO) 254 K/uL (130-430); WHITE BLOOD COUNT (AUTO) 6.1 K/uL (4.8-10.8)
[2023-07-21 07:12] LABS: ANION GAP 9 (5-15); CALCIUM 9.3 mg/dL (8.4-11.0); CARBON DIOXIDE 28 mmol/L (23-29); CHLORIDE 107 mmol/L (98-107); CREATININE 0.77 mg/dL (0.55-1.30); GLUCOSE 82 mg/dL (74-106); POTASSIUM 4.7 mmol/L (3.5-5.1); SODIUM SERUM 144 mmol/L (136-145); UREA NITROGEN, BLOOD 10 mg/dL (8-21)
[2023-07-21 08:00] VITALS: BP_SYST 129; PULSE 78; RESP 18; TEMP 96.1; O2SAT 97
[2023-07-21] MEDS: REXULTI 0.5 MG PO SCH ×2 (09:00→21:00)
[2023-07-21] MEDS: CITALOPRAM HYDROBROMIDE 20 MG TABLET PO SCH (10:22)
[2023-07-21] MEDS: ASPIRIN 81 MG TAB.CHEW PO SCH (10:22)
[2023-07-21] MEDS: GABAPENTIN 300 MG CAPSULE PO SCH ×2 (10:22→22:12)
[2023-07-21] MEDS: QUEtiapine FUMARATE 25 MG TABLET PO SCH ×2 (10:22→22:13)
[2023-07-21] MEDS: HEPARIN SODIUM,PORCINE 5,000 UNITS/ML VIAL SUBCUT SCH ×2 (10:24→22:20)
[2023-07-21 10:54] VITALS: BP_SYST 118; PULSE 62; RESP 18; TEMP 97.9; O2SAT 98
[2023-07-21] MEDS: CIPROFLOXACIN LACT 400 MG/D5W 200 ML IV SCH ×2 (10:59→21:00)
[2023-07-21 15:49] VITALS: BP_SYST 110; PULSE 63; RESP 18; TEMP 97.9; O2SAT 98
[2023-07-21 19:00] VITALS: BP_SYST 112; PULSE 65; RESP 16; TEMP 97.2; O2SAT 96
[2023-07-21 20:00] VITALS: BP_SYST 112; PULSE 65; RESP 16; TEMP 97.2; O2SAT 96
[2023-07-21] MEDS: ATORVASTATIN 20 MG TABLET PO SCH (22:12)
[2023-07-22 00:46] VITALS: BP_SYST 143; PULSE 101; RESP 19; TEMP 97.8; O2SAT 97
[2023-07-22] MEDS: LEVOTHYROXINE SODIUM 0.025 MG TABLET PO SCH (07:00)
[2023-07-22 08:00] VITALS: BP_SYST 130; PULSE 109; RESP 18; TEMP 98.2; O2SAT 96
[2023-07-22 08:13] LABS: ANION GAP 10 (5-15); CALCIUM 8.9 mg/dL (8.4-11.0); CARBON DIOXIDE 26 mmol/L (23-29); CHLORIDE 106 mmol/L (98-107); GLUCOSE 84 mg/dL (74-106); POTASSIUM 4.2 mmol/L (3.5-5.1); SODIUM SERUM 142 mmol/L (136-145); UREA NITROGEN, BLOOD 13 mg/dL (8-21)
[2023-07-22 08:20] LABS: BASOPHILS % (AUTO) 0.7 % (0.0-2.0); EOSINOPHILS # (AUTO) 0.1 K/uL (0.0-0.4); EOSINOPHILS % (AUTO) 2.2 % (0.0-4.0); HEMATOCRIT 33.6 % (36-48); HEMOGLOBIN 11.8 g/dL (12.0-16.0); LYMPHOCYTES % (AUTO) 38.8 % (20.5-51.5); MEAN CORPUSCULAR HEMOGLOBIN 30 pg (27-31); MEAN CORPUSCULAR HGB CONC 35 % (32-36); MEAN CORPUSCULAR VOLUME 86 fL (79.0-98.0); MONOCYTES # (AUTO) 0.3 K/uL (0.0-1.0); MONOCYTES % (AUTO) 6.5 % (1.7-9.3); NEUTROPHILS # (AUTO) 2.7 K/uL (1.8-7.7); NEUTROPHILS % (AUTO) 51.8 % (40.0-70.0); PLATELET COUNT (AUTO) 280 K/uL (130-430); RED BLOOD CELL COUNT(AUTO) 3.89 MIL/uL (4.2-6.2); RED CELL DISTRIBUTION WIDTH 12.9 % (9.0-15.0); WHITE BLOOD COUNT (AUTO) 5.2 K/uL (4.8-10.8)
[2023-07-22] MEDS ORDERED: LEVO750T64 PO (08:28)
[2023-07-22] MEDS: CIPROFLOXACIN LACT 400 MG/D5W 200 ML IV SCH (09:12)
[2023-07-22] MEDS: ASPIRIN 81 MG TAB.CHEW PO SCH (09:19)
[2023-07-22] MEDS: CITALOPRAM HYDROBROMIDE 20 MG TABLET PO SCH (09:19)
[2023-07-22] MEDS: GABAPENTIN 300 MG CAPSULE PO SCH (09:19)
[2023-07-22] MEDS: QUEtiapine FUMARATE 25 MG TABLET PO SCH (09:19)
[2023-07-22] MEDS: HEPARIN SODIUM,PORCINE 5,000 UNITS/ML VIAL SUBCUT SCH (09:20)
[2023-07-22 11:30] VITALS: BP_SYST 147; PULSE 110; RESP 20; TEMP 97.8; O2SAT 96
[2023-07-22 12:49] VITALS: BP_SYST 147; PULSE 110; RESP 20; TEMP 97.8; O2SAT 96
== END 2023-07-22 14:10 | DRG 871 ==
LOC: SED 12:42 → SMU 19:49
PROVIDERS: ADMIT General Practice; ATTEND Internal Medicine
DX: A41.9 Sepsis, unspecified organism (principal); G93.41 Metabolic encephalopathy; N39.0 Urinary tract infection, site not specified; E87.0 Hyperosmolality and hypernatremia; R41.0 Disorientation, unspecified; I10 Essential (primary) hypertension; Z20.822 Contact with and (suspected) exposure to COVID-19; E78.5 Hyperlipidemia, unspecified; F03.90 Unspecified dementia, unspecified severity, without behavioral disturbance, psychotic disturbance, mood disturbance, and anxiety; B96.20 Unspecified Escherichia coli [E. coli] as the cause of diseases classified elsewhere; K21.9 Gastro-esophageal reflux disease without esophagitis; F32.9 Major depressive disorder, single episode, unspecified; F41.9 Anxiety disorder, unspecified; E03.9 Hypothyroidism, unspecified; Z88.5 Allergy status to narcotic agent; Z88.8 Allergy status to other drugs, medicaments and biological substances
CPT/HCPCS: 36415; 71045; 76770; 80048; 80076; 81000; 81001; 81015; 82550; 83037; 83605; 83735; 84443; 85025; 85730; 87040; 87081; 87086; 93005; 96365; 96372; 99291; G0480; G0481; G0482; J0696; J0744; J1200; J1630; J1644; J2060; J2543; J7060

== ENCOUNTER 2023-09-04 20:05 | Inpatient (IN) | payer OTHER ==
[~2023-09-04] VITALS: Ht 152.4 cm; Wt 54.4 kg
[~2023-09-04 20:05] MED LIST changes: +LEVO750T64 PO
[2023-09-04 20:12] VITALS: BP_SYST 150; PULSE 75; RESP 16; TEMP 98.6; O2SAT 100
[2023-09-04] MEDS ORDERED: DEPS125 PO (20:22)
[2023-09-04] MEDS: HALOPERIDOL LACTATE 5 MG/ML VIAL IM ONE (20:59)
[2023-09-04] MEDS: LORazepam 2 MG/ML VIAL IM ONE (21:00)
[2023-09-04] MEDS: NACL 0.9% 1,000 ML IV ONE (21:49)
[2023-09-04 21:50] LABS: BILIRUBIN,URINE NEGATIVE (NEGATIVE); BLOOD, URINE 2+ (NEGATIVE); CLARITY/URINE CLEAR (CLEAR); COLOR,URINE YELLOW (YELLOW); GLUCOSE,URINE NEGATIVE (NEGATIVE); KETONES,URINE TRACE (NEGATIVE); LEUKOCYTE ESTERASE ,URINE 2+ (NEGATIVE); NITRITE, URINE POSITIVE (NEGATIVE); PROTEIN URINE TRACE (NEGATIVE)
[2023-09-04 22:03] LABS: BACTERIA,URINE MANY /HPF (None Seen); RBC,URINE >100 /HPF (0-3); WBC,URINE >100 /HPF (0-3)
[2023-09-04 22:05] LABS: BASOPHILS % (AUTO) 0.5 % (0.0-2.0); EOSINOPHILS # (AUTO) 0.1 K/uL (0.0-0.4); EOSINOPHILS % (AUTO) 1.9 % (0.0-4.0); HEMATOCRIT 29.6 % (36-48); HEMOGLOBIN 10.2 g/dL (12.0-16.0); LYMPHOCYTES # (AUTO) 1.7 K/uL (1.0-5.5); MEAN CORPUSCULAR HEMOGLOBIN 30 pg (27-31); MEAN CORPUSCULAR HGB CONC 35 % (32-36); MEAN CORPUSCULAR VOLUME 87 fL (79.0-98.0); MONOCYTES # (AUTO) 0.4 K/uL (0.0-1.0); MONOCYTES % (AUTO) 8.2 % (1.7-9.3); NEUTROPHILS # (AUTO) 2.9 K/uL (1.8-7.7); NEUTROPHILS % (AUTO) 56.4 % (40.0-70.0); PLATELET COUNT (AUTO) 247 K/uL (130-430); RED BLOOD CELL COUNT(AUTO) 3.41 MIL/uL (4.2-6.2); RED CELL DISTRIBUTION WIDTH 14.3 % (9.0-15.0); WHITE BLOOD COUNT (AUTO) 5.1 K/uL (4.8-10.8)
[2023-09-04 22:18] LABS: ANION GAP 10 (5-15); CALCIUM 8.8 mg/dL (8.4-11.0); CARBON DIOXIDE 25 mmol/L (23-29); CHLORIDE 108 mmol/L (98-107); CREATININE 0.73 mg/dL (0.55-1.30); GLUCOSE 127 mg/dL (74-106); POTASSIUM 3.3 mmol/L (3.5-5.1); SODIUM SERUM 143 mmol/L (136-145); UREA NITROGEN, BLOOD 21 mg/dL (8-21)
[2023-09-04 22:22] LABS: ALANINE AMINOTRANSFERASE 19 U/L (12-78); ALBUMIN 3.2 g/dL (3.4-4.8); ASPARTATE AMINOTRANSFERASE 21 U/L (10-37); LIPASE 39 U/L (16-77); TOTAL BILIRUBIN 0.5 mg/dL (0.0-1.0)
[2023-09-04] MEDS: KCL 40 mEq in 100 mL (PREMIX) 100 ML IV ONE (23:00)
[2023-09-04] MEDS ORDERED: PIPERACILLIN/TAZOBACTAM 3.375 GM/VIAL (ZOSYN) IV ONE (23:11)
[2023-09-04] MEDS: PIPERACILLIN/TAZO 3.375 GM in NS 50 ML IV ONE (23:21)
[2023-09-04] MEDS: LORazepam 2 MG/ML VIAL IVP ONE (23:28)
[2023-09-04] MEDS: DIPHENHYDRAMINE INJ 50 MG/ML VIAL IVP ONE (23:29)
[2023-09-05 04:26] LABS: BASOPHILS % (AUTO) 0.9 % (0.0-2.0); EOSINOPHILS # (AUTO) 0.2 K/uL (0.0-0.4); EOSINOPHILS % (AUTO) 4.7 % (0.0-4.0); HEMATOCRIT 27.8 % (36-48); HEMOGLOBIN 9.7 g/dL (12.0-16.0); LYMPHOCYTES # (AUTO) 2.1 K/uL (1.0-5.5); LYMPHOCYTES % (AUTO) 45.7 % (20.5-51.5); MEAN CORPUSCULAR HEMOGLOBIN 30 pg (27-31); MEAN CORPUSCULAR HGB CONC 35 % (32-36); MEAN CORPUSCULAR VOLUME 88 fL (79.0-98.0); MONOCYTES # (AUTO) 0.4 K/uL (0.0-1.0); MONOCYTES % (AUTO) 8.1 % (1.7-9.3); NEUTROPHILS # (AUTO) 1.9 K/uL (1.8-7.7); NEUTROPHILS % (AUTO) 40.6 % (40.0-70.0); PLATELET COUNT (AUTO) 226 K/uL (130-430); RED BLOOD CELL COUNT(AUTO) 3.18 MIL/uL (4.2-6.2); RED CELL DISTRIBUTION WIDTH 14.4 % (9.0-15.0); WHITE BLOOD COUNT (AUTO) 4.6 K/uL (4.8-10.8)
[2023-09-05 04:43] LABS: ALANINE AMINOTRANSFERASE 15 U/L (12-78); ALBUMIN 2.7 g/dL (3.4-4.8); ANION GAP 9 (5-15); ASPARTATE AMINOTRANSFERASE 21 U/L (10-37); CALCIUM 8.2 mg/dL (8.4-11.0); CARBON DIOXIDE 24 mmol/L (23-29); CHLORIDE 112 mmol/L (98-107); CREATININE 0.64 mg/dL (0.55-1.30); GLUCOSE 90 mg/dL (74-106); SODIUM SERUM 145 mmol/L (136-145); TOTAL BILIRUBIN 0.5 mg/dL (0.0-1.0); UREA NITROGEN, BLOOD 16 mg/dL (8-21)
[2023-09-05 04:55] LABS: POTASSIUM 2.9 mmol/L (3.5-5.1)
[2023-09-05] MEDS ORDERED: POTASSIUM CHLORIDE 20 MEQ/PKT PACKET PO ONE (05:00)
[2023-09-05] MEDS: 0.45% NACL 1,000 ML IV SCH (06:32)
[2023-09-05] MEDS ORDERED: LORA-259 PO (08:26)
[2023-09-05] MEDS ORDERED: ACET325T53 PO (08:26)
[2023-09-05] MEDS: LORazepam 2 MG/ML VIAL IVP ONE (09:45)
[2023-09-05] MEDS: HALOPERIDOL LACTATE 5 MG/ML VIAL IVP ONE (09:45)
[2023-09-05] MEDS: POTASSIUM CHLORIDE 40 MEQ in NS 250 ML IV ONE (09:46)
[2023-09-05 10:00] VITALS: BP_SYST 138; PULSE 72; RESP 18; TEMP 97.7; O2SAT 96
[2023-09-05 10:15] VITALS: BP_SYST 138; PULSE 72; RESP 18; TEMP 97.7; O2SAT 96
[2023-09-05] MEDS ORDERED: [UNRECOGNIZED DRUG - CODE] PO (11:09)
[2023-09-05] MEDS ORDERED: PANT40GR PO (11:09)
[2023-09-05 11:10] LABS: ANION GAP 8 (5-15); CALCIUM 8.3 mg/dL (8.4-11.0); CARBON DIOXIDE 26 mmol/L (23-29); CHLORIDE 110 mmol/L (98-107); CREATININE 0.68 mg/dL (0.55-1.30); GLUCOSE 81 mg/dL (74-106); POTASSIUM 3.1 mmol/L (3.5-5.1); SODIUM SERUM 144 mmol/L (136-145); UREA NITROGEN, BLOOD 14 mg/dL (8-21)
[2023-09-05 11:13] VITALS: BP_SYST 147; PULSE 69; RESP 16; TEMP 97.1; O2SAT 96
[2023-09-05] MEDS: POTASSIUM CHLORIDE 20 MEQ/PKT PACKET PO ONE (14:00)
[2023-09-05 15:04] VITALS: BP_SYST 149; PULSE 69; RESP 16; TEMP 96.7; O2SAT 95
[2023-09-05] MEDS ORDERED: CALCIUM CARBONATE PO SCH (18:00)
[2023-09-05] MEDS ORDERED: VITAMIN D3 PO SCH (18:00)
[2023-09-05] MEDS: CALCIUM CARBONATE/VITAMIN D3 1 TAB TABLET PO SCH (18:00)
[2023-09-05] MEDS ORDERED: [UNRECOGNIZED DRUG - OTHER] PO SCH (18:00)
[2023-09-05 20:20] VITALS: BP_SYST 143; PULSE 96; RESP 18; TEMP 97.9; O2SAT 94
[2023-09-05] MEDS: ATORVASTATIN 20 MG TABLET PO SCH (21:00)
[2023-09-06 00:30] VITALS: BP_SYST 143; PULSE 86; RESP 18; TEMP 97.2; O2SAT 100
[2023-09-06] MEDS: LORazepam 2 MG/ML VIAL IVP PRN (02:52)
[2023-09-06] MEDS: LEVOTHYROXINE SODIUM 0.025 MG TABLET PO SCH (06:34)
[2023-09-06 08:00] VITALS: O2SAT 100
[2023-09-06 08:12] VITALS: BP_SYST 119; PULSE 67; RESP 16; TEMP 97.7; O2SAT 100
[2023-09-06] MEDS ORDERED: ESCITALOPRAM OXALATE 10 MG TABLET PO SCH (09:00)
[2023-09-06] MEDS ORDERED: BREXPIPRAZOLE 0.5 MG PO SCH (09:00)
[2023-09-06] MEDS: BREXPIPRAZOLE PO SCH (09:00)
[2023-09-06] MEDS: GABAPENTIN 400 MG CAPSULE PO SCH (09:45)
[2023-09-06] MEDS: ASPIRIN 81 MG TAB.CHEW PO SCH (09:46)
[2023-09-06] MEDS: DIVALPROEX SODIUM 125 MG CAP.(DEPAKOTE SPRINKLE) PO SCH (09:46)
[2023-09-06] MEDS: PANTOPRAZOLE SODIUM 40 MG TAB PO SCH (09:46)
[2023-09-06] MEDS: CITALOPRAM HYDROBROMIDE 20 MG TABLET PO SCH (09:46)
[2023-09-06 12:24] VITALS: BP_SYST 129; PULSE 67; RESP 18; TEMP 97.8; O2SAT 98
[2023-09-06] MEDS: cefTRIAXone 1 GM in D5W 50 ML IV SCH (17:31)
[2023-09-06 19:00] VITALS: O2SAT 100
[2023-09-06 20:00] VITALS: BP_SYST 166; PULSE 92; RESP 18; TEMP 97.8; O2SAT 100
[2023-09-07 00:34] VITALS: BP_SYST 134; PULSE 81; RESP 17; TEMP 97.6; O2SAT 96
[2023-09-07 08:20] VITALS: BP_SYST 153; PULSE 79; RESP 16; TEMP 98.7; O2SAT 100
[2023-09-07 12:00] VITALS: BP_SYST 134; PULSE 100; RESP 18; TEMP 98.3; O2SAT 97
[2023-09-07 16:00] VITALS: BP_SYST 135; PULSE 92; RESP 18; TEMP 98; O2SAT 98
[2023-09-07] MEDS: BALSAM PERU/CASTOR OIL 56.7 GM OINT...G. TP ONE (16:44)
[2023-09-07 19:00] VITALS: O2SAT 100
[2023-09-07 20:00] VITALS: BP_SYST 140; PULSE 91; RESP 16; TEMP 97.5; O2SAT 97
[2023-09-07] MEDS: NITROFURANTOIN MONOHYD/M-CRYST 100 MG CAPSULE (MacroBID) PO SCH (22:28)
[2023-09-08] VITALS: BP_SYST 120; PULSE 94; RESP 15; TEMP 97.8; O2SAT 94
[2023-09-08 04:58] LABS: ALANINE AMINOTRANSFERASE 17 U/L (12-78); ALBUMIN 3.1 g/dL (3.4-4.8); ANION GAP 8 (5-15); ASPARTATE AMINOTRANSFERASE 18 U/L (10-37); CARBON DIOXIDE 30 mmol/L (23-29); CHLORIDE 109 mmol/L (98-107); CREATININE 0.73 mg/dL (0.55-1.30); GLUCOSE 88 mg/dL (74-106); POTASSIUM 4.3 mmol/L (3.5-5.1); SODIUM SERUM 147 mmol/L (136-145); TOTAL BILIRUBIN 0.6 mg/dL (0.0-1.0); TOTAL PROTEIN, SERUM 6.3 g/dL (6.4-8.3); UREA NITROGEN, BLOOD 12 mg/dL (8-21)
[2023-09-08 08:00] VITALS: BP_SYST 122; PULSE 72; RESP 12; TEMP 97.8; O2SAT 95
[2023-09-08] MEDS ORDERED: ROCPM1 IV (08:50)
[2023-09-08] MEDS: BALSAM PERU/CASTOR OIL 56.7 GM OINT...G. TP SCH (09:37)
[2023-09-08 11:15] VITALS: O2SAT 100
[2023-09-08 12:00] VITALS: BP_SYST 117; PULSE 67; RESP 17; TEMP 98.6; O2SAT 100
[2023-09-08 13:46] VITALS: BP_SYST 138; PULSE 78; RESP 14; TEMP 98.3; O2SAT 97
[2023-09-08 15:00] VITALS: BP_SYST 122; PULSE 72; RESP 16; TEMP 97.8; O2SAT 95
== END 2023-09-08 15:25 | DRG 552 ==
LOC: SED 20:05 → STU 09-05 01:41
PROVIDERS: ADMIT Internal Medicine; ATTEND Internal Medicine
DX: M47.816 Spondylosis without myelopathy or radiculopathy, lumbar region (principal); N39.0 Urinary tract infection, site not specified; E44.0 Moderate protein-calorie malnutrition; E87.6 Hypokalemia; D64.9 Anemia, unspecified; E78.5 Hyperlipidemia, unspecified; B96.20 Unspecified Escherichia coli [E. coli] as the cause of diseases classified elsewhere; F02.80 Dementia in other diseases classified elsewhere, unspecified severity, without behavioral disturbance, psychotic disturbance, mood disturbance, and anxiety; G30.9 Alzheimer's disease, unspecified; J44.9 Chronic obstructive pulmonary disease, unspecified; W18.30XA Fall on same level, unspecified, initial encounter; S09.90XA Unspecified injury of head, initial encounter; Y93.89 Activity, other specified; Y92.89 Other specified places as the place of occurrence of the external cause; Y99.8 Other external cause status; Z88.5 Allergy status to narcotic agent; Z88.8 Allergy status to other drugs, medicaments and biological substances; Z68.23 Body mass index [BMI] 23.0-23.9, adult
CPT/HCPCS: 36415; 70450-TC; 71045; 71250-TC; 72125-TC; 73502; 80048; 80053; 81000; 81001; 81015; 83605; 83690; 83880; 85025; 87040; 87081; 87086; 96361; 96365; 96372; 96375; 97110-GP; 97112-GP; 97530-GP; 99285; G0378; J0696; J1630; J2060; J2543; J3480; J7050; J7060